=== PATIENT | female | born 1970 | race Caucasian/White ===

== ENCOUNTER 2019-11-19 08:26 | Outpatient (CLI) | payer BC, SELFPAY ==
--- NOTE | 2019-11-19 | US_ITS ---
WS: [id number] Complete ABDOMINAL ULTRASOUND HISTORY: RUQ PAIN COMPARISON: None available. Liver: 14.8 cm in length. Liver is normal size and echogenicity with no mass or intrahepatic dilatati on. Gallbladder: Normally distended gallbladder with numerous stones. No pericholecystic fluid. Gallbladder wall thickness: 0.2 cm. Pancreas: Poorly visualized. CBD: 0.3 cm. Right kidney: 9.8 cm x 3.8 cm x 4.5 cm. No mass, cortical thickening or hydronephrosis. Left kidney: 11.3 cm x 5.0 cm x 4.7 cm. No mass, cortical thickening or hydronephrosis. Spleen: Normal size and echogenicity. Abdominal aorta and IVC are within normal limits. No ascites. US/US abdomen complete* [id number] IMPRESSION: 1. Cholelithiasis without acute cholecystitis. 2. Pancreas is poorly visualized.
== END 2019-11-19 08:27 | disposition home or self-care (01) ==
LOC: RADOUTREAD 11:25
PROVIDERS: Visit Provider Nurse Practitioner Family
DX: Z01.89 Encounter for other specified special examinations (principal)

== ENCOUNTER 2019-12-01 10:14 | Day surgery (SDC) | payer BC, SELFPAY ==
[2019-11-30 13:18] VITALS: BMI 29.9
[2019-12-01 11:47] VITALS: BP 180/97; PULSE 86; RESP 18; TEMP 36.4; O2SAT 98
--- NOTE | 2019-12-01 12:05 | ANES.PREANE2 ---
Pre-Anesthetic Assessment Pre-Anesthetic Assessment: Height/Weight: Height 1.65 m Weight 81.647 kg Temp Pulse Resp BP Pulse Ox 97.5 F L 86 18 180/97 98 12/01/19 11:47 12/01/19 11:47 12/01/19 11:47 12/01/19 11:47 12/01/19 11:47 Preop Diagnosis: Gallstones Proposed Procedure: Operation Date: 12/01/19 12:40 Proposed Procedures p Laparoscopic Cholecystectomy 72972 K80.20(Not Applicable) - Saul Mello MD Last intake: Intake Last Liquid Date 11/30/19 Last Liquid Time 18:30 Last Solid Date 11/30/19 Last Solid Time 18:30 Exam: Pre-Anes Outpt Exam: alert, oriented x 3, clear to auscultation bilaterally and regular rate & rhythm Airway: Submandibular: WNL Cervical ROM: WNL MP: 2 GI: Comments: cholelithiasis Anesthetic Plan: ASA status: 2 Anesthesia: General PFSH Anesthesia PFSH: Social History Smoking and tobacco status: never smoked Alcohol intake: never Data Anesthesia Cardiac Studies: No Data to Display
[2019-12-01] MEDS: sodium chloride 0.9% 1,000 ML 30 ML IV (12:12)
--- NOTE | 2019-12-01 14:00 | W.PM.OPSUD ---
Surgery/Procedure H&P Update DATE OF PROCEDURE: December 01, 2019 DATE H&P PERFORMED: 11/29/19 H&P UPDATE INFORMATION: I have reviewed H&P completed within last 30 days, I have examined patient prior to procedure and No changes to prior documentation PREOP DIAGNOSIS: Gallstones PLANNED PROCEDURE: Operation Date: 12/01/19 12:40 Proposed Procedures p Laparoscopic Cholecystectomy 08379 K80.20(Not Applicable) - Saul Mello MD
--- NOTE | 2019-12-01 14:42 | PM.OP ---
Operative Report Date of procedure: December 15, 2019 Pre-op Diagnosis: Cholelithiasis Post-op diagnosis: same Procedure Done: Laparoscopic cholecystectomy Specimens removed/disposition: Gallbladder Surgeon: Saul Mello Anesthesia: General Estimated blood loss (mL): 10 Condition: stable Disposition: PACU Procedure: The patient was taken to the operating room and was intubated under general anesthesia. After the antibiotic had been administered, the abdomen was prepped and draped in a sterile manner. Using a #15 blade, a 1 centimeter infraumbilical curvilinear incision was made and using an open Anabel technique the peritoneal cavity was entered. A 10 millimeter port was placed and 15 millimeters of pneumoperitoneum was created. A 10 millimeter, 30 degrees scope was then introduced. Three 5 millimeter ports were placed in the epigastric, midclavicular and the anterior axillary line two fingerbreadths below the costal margin on the right side under the direct visualization. Ratcheted forceps were introduced into the lateral most port and was used to retract the fundus of the gallbladder cephalad and using forceps the infundibulum of the gallbladder was retracted laterally. Using L-hook cautery the peritoneum overlying the Calot's triangle was opened medially and laterally until the cystic duct and the cystic artery were skeletonized. Dissection was carried along the body of the gallbladder and after ensuring critical view of safety, 4 clips applied on the cystic duct and 3 clips applied on the cystic artery and cut leaving, 3 clips on the remaining portion of the duct and 2 clips on the remaining portion of the artery. The rest of the gallbladder was dissected off the liver using L-hook cautery. There was no bleeding or bile leaking noted from the gallbladder fossa and the clips appeared to be in place. An EndoCatch bag was introduced to remove the gallbladder. All the ports were removed under direct visualization and there was no bleeding noted from the port sites. The fascia of the umbilicus was closed using [id number] 0 Vicryl sutures and the subcutaneous tissue was approximated using 3-0 Vicryl sutures. The skin at all four ports were closed using 4-0 Monocryl and Dermabond. A total of 10 millimeters of 0.5% Marcaine was infiltrated around the port sites. The patient was stable throughout the procedure.
[2019-12-01 17:14] VITALS: BP 142/79; PULSE 96; RESP 16; TEMP 36.6; O2SAT 98
[2019-12-01 17:20] VITALS: BP 149/98; PULSE 81; RESP 20; O2SAT 97
[2019-12-01 17:25] VITALS: BP 139/67; PULSE 76; RESP 14; TEMP 36.5; O2SAT 95
[2019-12-01 17:37] VITALS: BP 121/72; PULSE 72; RESP 16; TEMP 36.5; O2SAT 100
[2019-12-01] MEDS: HYDROcodone-acetaminophen 5-325 mg Tablet 1 TAB PO (17:50)
[2019-12-01 17:56] VITALS: BP 142/77; PULSE 85; RESP 18; TEMP 36.5; O2SAT 96
== END 2019-12-01 18:24 | disposition home or self-care (01) ==
PROVIDERS: PCP Family Medicine; Visit Provider Surgery
PROC: 0FT44ZZ Resection of Gallbladder, Percutaneous Endoscopic Approach (ICD-10-PCS; CPT 47562; principal; 2019-12-01 12:40)
DX: K80.10 Calculus of gallbladder with chronic cholecystitis without obstruction (principal)
CPT/HCPCS: 47562; 12345; 88304; J0131; J0690; J1100; J2001; J2405; J2704; J2710; J3010; J3490; J7030

== ENCOUNTER 2021-12-31 13:55 | Outpatient (CLI) | payer BC, SELFPAY ==
--- NOTE | 2021-12-31 14:13 | XR_ITS ---
WS: [email or web address] Exam: XR shoulder LT min 2V* [id number] Date/Time of Exam: 12/31/2021 2:19 PM Reason For Exam: PAIN IN JOINT IN SHOULDER Comparison 06/17/2018. The projections of the shoulder reveal no fractures, anomalies, soft tissue swelling, or calcificatio ns. There is normal bony alignment. No irregularity of the bony architecture is noted. XR/XR shoulder LT min 2V* [id number] IMPRESSION: Negative left shoulder.
== END 2021-12-31 13:56 | disposition home or self-care (01) ==
PROVIDERS: PCP Family Medicine; Visit Provider Family Medicine
DX: M25.512 Pain in left shoulder (principal)
CPT/HCPCS: 73030

== ENCOUNTER 2022-12-27 09:30 | Outpatient (CLI) | payer BC, SELFPAY ==
--- NOTE | 2022-12-27 09:44 | MM_ITS ---
WS: [email or web address] SCREENING DIGITAL BREAST TOMOSYNTHESIS MAMMOGRAM WITH CAD HISTORY: SCREENING COMPARISON: 08/01/2017, 10/01/2018, 10/22/2018 Bilateral CC and MLO with tomosynthesis and synthetic mammography submitted. Computer aided detection analyzed. Breast composition: There are scattered areas of fibroglandular density. Well-circumscribed mass richmond uring 8 x 9 mm in the anterior RIGHT breast just posterior and lateral to the nipple. There is an add itional vague asymmetry in the central medial LEFT breast which is probably above the nipple line. Ad ditional imaging is also recommended. Benign calcifications otherwise. MM/[place] [id number] IMPRESSION: BI-RADS: 0-Incomplete: Need additional imaging evaluation FOLLOW UP: Need Additional Imaging RIGHT breast: Spot compression views (CC and MLO). True ML. Ultrasound to follo w if abnormality persists. LEFT breast: Spot compression views (CC and MLO). True ML. Ultrasound to follow if abnormality persists.
== END 2022-12-27 09:31 | disposition home or self-care (01) ==
LOC: RAD 09:37
PROVIDERS: PCP Family Medicine; Visit Provider Nurse Practitioner Family
DX: Z12.31 Encounter for screening mammogram for malignant neoplasm of breast (principal)
CPT/HCPCS: 77063; 77067

== ENCOUNTER 2023-01-14 10:39 | Outpatient (CLI) | payer BC, SELFPAY ==
--- NOTE | 2023-01-14 11:05 | MM_ITS ---
WS: [id number] DIAGNOSTIC BILATERAL DIGITAL BREAST TOMOSYNTHESIS MAMMOGRAPHY WITH CAD Bilateral breast ultrasound, limited HISTORY: ABNORMAL MAMMO COMPARISON: 12/27/2022, 11/19/2018 TECHNIQUE: Bilateral craniocaudad, mediolateral oblique, and mediolateral views are submitted with to mosismael and SM. Spot compression views bilateral CC and MLO. Computer aided detection utilized. Breast composition: There are scattered areas of fibroglandular density. Mass persists in the anterio r subareolar region RIGHT breast measuring 9.5 mm. Ultrasound to be performed. Additional mass persis ts in the medial LEFT breast near 9-10 o'clock at a middle depth measuring 6.6 mm. Ultrasound to foll ow. Bilateral breast ultrasound, limited. RIGHT: Nearly isoechoic nodule in the RIGHT retroareolar region with lobulated margins measures 8 x 8 x 6 mm. Corresponds to the mammographic abnormality. No increased vascularity. LEFT: The very subtle mass in the LEFT breast is not definitely identified by ultrasound. MM/[place] [id number] IMPRESSION: BI-RADS: 4-Suspicious Finding-Biopsy Should Be Considered FOLLOW UP: Biopsy Recommended 1. Ultrasound-guided biopsy recommended of the mass in the RIGHT retroareolar region. This mass is increased in size since 2019. 2. Mass seen in the LEFT breast by mammography is not identified by ultrasound . This is a very subtle finding. 6 month mammographic follow-up LEFT breast and possible ultrasound recommended.
--- NOTE | 2023-01-14 11:49 | US_ITS ---
WS: [email or web address] DIAGNOSTIC BILATERAL DIGITAL BREAST TOMOSYNTHESIS MAMMOGRAPHY WITH CAD Bilateral breast ultrasound, limited HISTORY: ABNORMAL MAMMO COMPARISON: 12/27/2022, 11/19/2018 TECHNIQUE: Bilateral craniocaudad, mediolateral oblique, and mediolateral views are submitted with to mosismael and SM. Spot compression views bilateral CC and MLO. Computer aided detection utilized. Breast composition: There are scattered areas of fibroglandular density. Mass persists in the anterio r subareolar region RIGHT breast measuring 9.5 mm. Ultrasound to be performed. Additional mass persis ts in the medial LEFT breast near 9-10 o'clock at a middle depth measuring 6.6 mm. Ultrasound to foll ow. Bilateral breast ultrasound, limited. RIGHT: Nearly isoechoic nodule in the RIGHT retroareolar region with lobulated margins measures 8 x 8 x 6 mm. Corresponds to the mammographic abnormality. No increased vascularity. LEFT: The very subtle mass in the LEFT breast is not definitely identified by ultrasound. US/US breast BI limited* [id number] IMPRESSION: BI-RADS: 4-Suspicious Finding-Biopsy Should Be Considered FOLLOW UP: Biopsy Recommended 1. Ultrasound-guided biopsy recommended of the mass in the RIGHT retroareolar region. This mass is increased in size since 2019. 2. Mass seen in the LEFT breast by mammography is not identified by ultrasound . This is a very subtle finding. 6 month mammographic follow-up LEFT breast and possible ultrasound recommended.
== END 2023-01-14 10:40 | disposition home or self-care (01) ==
LOC: RAD 10:41
PROVIDERS: PCP Family Medicine; Visit Provider Nurse Practitioner Family
DX: N64.89 Other specified disorders of breast (principal); N63.14 Unspecified lump in the right breast, lower inner quadrant
CPT/HCPCS: 76642; 77062; G0279

== ENCOUNTER 2023-01-23 12:04 | Outpatient (CLI) | payer BC, SELFPAY ==
--- NOTE | 2023-01-23 12:16 | US_ITS ---
WS: [email or web address] ULTRASOUND-GUIDED RIGHT BREAST BIOPSY HISTORY: MASS OF R BREAST COMPARISON: 01/14/2023, 11/03/2018 Procedure, risks and complications are explained to the patient. Medications are reviewed. Consent is obtained. The mass in the RIGHT breast is localized with ultrasound. Mass localizes to the subareolar region RI GHT breast. Skin is cleansed with ChloraPrep and anesthetized with 1% buffered lidocaine. Small derma tome is made. Under sterile conditions mass is biopsied with a 14-gauge Achieve needle. Multiple core biopsies are performed. Material placed in formalin and sent to pathology for review. No complicatio ns encountered. Breast tissue marker (Bard ultrasound enhanced ribbon): Single. Patient left the radiology suite with no complications. Patient is instructed to return to [facility] or [facility] with any concerns. US/[place] [id number] IMPRESSION: 1. Uncomplicated core needle biopsy RIGHT breast mass, subareolar. PATHOLOGY: Fibroadenoma with apocrine metaplasia. No malignancy. RECOMMENDATION: Diagnostic RIGHT mammogram and possible ultrasound follow-up 6 months.
== END 2023-01-23 12:05 | disposition home or self-care (01) ==
PROVIDERS: PCP Family Medicine; Visit Provider Nurse Practitioner Family
DX: N63.10 Unspecified lump in the right breast, unspecified quadrant (principal)
CPT/HCPCS: 19083; 88305

== ENCOUNTER 2023-04-29 08:22 | Outpatient (CLI) | payer BC, SELFPAY | END 2023-04-29 08:23 | disposition home or self-care (01) | LOC: RAD 14:16 | PROVIDERS: PCP Nurse Practitioner Family; Visit Provider Podiatrist Foot & Ankle Surgery | DX: M19.072 Primary osteoarthritis, left ankle and foot (principal); M79.672 Pain in left foot; Q66.89 Other specified congenital deformities of feet | CPT/HCPCS: 73630 ==

== ENCOUNTER 2023-05-14 13:19 | Outpatient (CLI) | payer BC, SELFPAY ==
--- NOTE | 2023-05-14 13:45 | MR_ITS ---
WS: [email or web address] EXAMINATION: MR ankle LT wo con* [id number] ORDER DATE: 05/14/2023 1:34 PM COMPARISON: None. HISTORY: Achilles tendon rupture CONTRAST: None. TECHNIQUE: Axial proton density fat sat, axial T1, sagittal proton density, sagittal STIR, coronal T2 fat sat, and coronal T1 sequences performed. After contrast, axial T1 fat sat, coronal T1 fat sat, and sagittal T1 fat sat were performed. FINDINGS: Diffuse fusiform thickening of the distal Achilles tendon with surrounding fluid and edema. Slight in creased signal in the Achilles tendon. Findings compatible with tendinopathy. Achilles tendon measure s 13 mm in maximum AP dimension. Additional small intrasubstance tear involving the ventral surface i n the mid tendon. Surrounding peritendinitis Plantar calcaneal spurring. Pes planus. Flattening of the talocalcaneal angle. Osteopenia. Normal pl otto aponeurosis. Small lobulated ganglion cysts along the dorsal talocalcaneal recess. Normal luis fernando avicular articulation. 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 Normal awilda r dome. Small ankle effusion. ATF appears intact. Soft tissue edema about the ankle. Chronic appearing split tear involving the peroneal brevis. Small amount of tenosynovitis involving t he flexor compartment tendons. Normal extensor compartment tendons. IMPRESSION: * Diffuse fusiform thickening of the Achilles tendon compatible with tendinopathy measuring up to 13 mm in maximum AP dimension. Surrounding fluid and edema compatible with peritendinitis. * Small partial Achilles tear in the mid tendon along the ventral surface with a small amount of adj acent fluid and edema. * Pes planus with plantar calcaneal spurring. Normal plantar fascia. * Chronic appearing ununited fracture involving the tip of the medial malleolus. * ATF appears intact. * Moderate degenerative changes involving the midfoot and hindfoot. * Chronic appearing split tear involving the peroneal brevis.
== END 2023-05-14 13:20 | disposition home or self-care (01) ==
PROVIDERS: PCP Family Medicine; Visit Provider Podiatrist Foot & Ankle Surgery
DX: S86.012A Strain of left Achilles tendon, initial encounter (principal); S86.312A Strain of muscle(s) and tendon(s) of peroneal muscle group at lower leg level, left leg, initial encounter; M76.822 Posterior tibial tendinitis, left leg; M21.42 Flat foot [pes planus] (acquired), left foot; S82.52XK Displaced fracture of medial malleolus of left tibia, subsequent encounter for closed fracture with nonunion; X58.XXXD Exposure to other specified factors, subsequent encounter; M85.872 Other specified disorders of bone density and structure, left ankle and foot
CPT/HCPCS: 73721

== ENCOUNTER 2023-05-27 11:19 | Outpatient (CLI) | payer BC, SELFPAY | END 2023-05-27 11:20 | disposition home or self-care (01) | LOC: SPT 11:20 | PROVIDERS: PCP Family Medicine; Visit Provider Podiatrist Foot & Ankle Surgery | DX: Z46.89 Encounter for fitting and adjustment of other specified devices (principal); X58.XXXD Exposure to other specified factors, subsequent encounter; M25.572 Pain in left ankle and joints of left foot | CPT/HCPCS: 97760; L4361 ==

== ENCOUNTER 2023-06-25 07:40 | Outpatient (RCR) | payer BC, SELFPAY | END 2023-07-15 23:59 | disposition home or self-care (01) | LOC: SPT 07:40 | PROVIDERS: Visit Provider Podiatrist Foot & Ankle Surgery | DX: M76.62 Achilles tendinitis, left leg (principal); M67.02 Short Achilles tendon (acquired), left ankle; M25.572 Pain in left ankle and joints of left foot | CPT/HCPCS: 97161 ==

== ENCOUNTER 2023-07-28 12:58 | Outpatient (CLI) | payer BC, SELFPAY ==
--- NOTE | 2023-07-28 13:06 | MM_ITS ---
WS: [id number] DIAGNOSTIC BILATERAL DIGITAL BREAST TOMOSYNTHESIS MAMMOGRAPHY WITH CAD HISTORY: 6MFU POST BX, RIGHT breast COMPARISON: 01/14/2023, 08/01/2017, 12/27/2022 TECHNIQUE: Bilateral craniocaudad, mediolateral oblique, and mediolateral views are submitted with to mosynthesis and SM. Bilateral CC spot compression views. Computer aided detection utilized. Breast composition: There are scattered areas of fibroglandular density. Well-circumscribed mass in t he anterior RIGHT breast which was biopsied recently contains a clip. The biopsy clip is centrally po sitioned. Mass is similar in size. Noted to be benign on a recent biopsy. The asymmetry in the LEFT b reast is not apparent today. There are no suspicious findings within either breast. IMPRESSION: MM/[place] [id number] BI-RADS: 2-Benign FOLLOW UP: 1 Year Follow-up Recommend return to annual screening mammography.
== END 2023-07-28 12:59 | disposition home or self-care (01) ==
LOC: RAD 12:59
PROVIDERS: PCP Nurse Practitioner Family; Visit Provider Nurse Practitioner Family
DX: N63.10 Unspecified lump in the right breast, unspecified quadrant (principal)
CPT/HCPCS: 77062; G0279

== ENCOUNTER → 2023-10-07 17:10 | Outpatient (BNVA) | payer BC, SELFPAY | PROVIDERS: PCP Nurse Practitioner Family; Visit Provider Emergency Medicine | DX: J02.9 Acute pharyngitis, unspecified (principal) | CPT/HCPCS: 87071; 87880 ==

== ENCOUNTER → 2024-08-10 07:47 | Outpatient (BNVA) | payer BC, SELFPAY | PROVIDERS: PCP Nurse Practitioner Family | DX: K13.29 Other disturbances of oral epithelium, including tongue (principal) | CPT/HCPCS: 87880 ==

== ENCOUNTER 2024-11-25 10:13 | Outpatient (CLI) | payer BC, SELFPAY ==
--- NOTE | 2024-11-25 10:14 | MM_ITS ---
WS: [email or web address] Bilateral screening 3D tomosynthesis digital mammogram, 11/25/2024 10:18 AM Clinical Data: SCREENING Comparison: 07/28/2023, 01/14/2023, 12/27/2022, 11/19/2018, 10/01/2018, 08/01/2017, 12/31/2016, 07/02/2016, 06/12/2016, 05/07/2010. Findings: The right breast nodule in the anterior aspect of the right breast shows irregularity of the margins on the MLO view. There is a slight increase in size of this nodule compared to the prior exam. There is a biopsy clip in the central portion of the nodule. The left breast shows no change from before. There are scattered dystrophic calcifications in both breasts. MM/MM scr BI tomosynthesis [id number] Impression: 1. Slight increase in size of right breast nodule with spiculated border and re commend right breast ultrasound and ML view of the right breast. 2. Negative left breast BIRADS: 0 - Incomplete: Need additional imaging evaluation. FOLLOW UP: See Report DENSITY: There are scattered areas of fibroglandular density. The CAD body design checker was used
== END 2024-11-25 10:14 | disposition home or self-care (01) ==
PROVIDERS: PCP Family Medicine; Visit Provider Family Medicine
DX: Z12.31 Encounter for screening mammogram for malignant neoplasm of breast (principal); R92.323 Mammographic fibroglandular density, bilateral breasts; N63.10 Unspecified lump in the right breast, unspecified quadrant; R92.1 Mammographic calcification found on diagnostic imaging of breast
CPT/HCPCS: 77063; 77067

== ENCOUNTER → 2024-12-16 07:08 | Outpatient (BNVA) | payer BC, SELFPAY | PROVIDERS: PCP Family Medicine; Visit Provider Family Medicine | DX: Z51.81 Encounter for therapeutic drug level monitoring (principal); Z00.00 Encounter for general adult medical examination without abnormal findings; Z13.6 Encounter for screening for cardiovascular disorders; E55.9 Vitamin D deficiency, unspecified; R53.81 Other malaise; R53.83 Other fatigue | CPT/HCPCS: 80053; 80061; 82306; 84443; 85025 ==

== ENCOUNTER 2024-12-21 08:54 | Outpatient (CLI) | payer BC, SELFPAY ==
--- NOTE | 2024-12-21 08:57 | US_ITS ---
WS: [email or web address] Exam: US breast RT limited* [id number] Date/Time of Exam: 12/21/2024 10:05 AM Reason For Exam: ABNORMAL MAMMOGRAM Compared to prior exam 01/23/2023. A 0.9 x 0.5 0.8 cm heterogeneous hypoechoic solid nodule noted in the RIGHT retroareolar area. The nodule contains a stereotactic biopsy marker. The nodule shows no change in size or appearance since the prior ultrasound. Recommendations: 6-month follow-up RIGHT mammogram and RIGHT breast ultrasound suggested for surveillance. US/US breast RT limited* [id number] IMPRESSION: 1. Stable appearing hypoechoic solid nodule in the retroareolar area of the RIG HT breast containing a stereotactic biopsy marker. BI-RADS Category 3.
--- NOTE | 2024-12-21 09:00 | MM_ITS ---
WS: [email or web address] VIEWS: MLO, CC, and ML views RIGHT breast. 3D digital tomosynthesis is also included in this exam. Comparison made with prior exam of 05/07/2010, 06/12/2016, 08/01/2017, 10/01/2018, 12/27/2022.. Findings: There are scattered areas of fibroglandular density. Again noted is a 9.2 mm nodule in the subareolar area of the RIGHT breast containing a stereotactic biopsy marker. No obvious architectural distortion. A single microcalcification is noted in the nodule. Very little change since 07/28/2023. Renal ultrasound recommended for further work-up. MM/MM diag RT tomosynthesis [id number] Impression: BI-RADS: 0 - Incomplete: Need additional imaging evaluation. FOLLOW-UP: Need Additional Imaging This mammogram was also analyzed by the Computer Aided Detection System R2 Imag e [employer] Claims Supervisor.
== END 2024-12-21 08:55 | disposition home or self-care (01) ==
PROVIDERS: PCP Family Medicine; Visit Provider Family Medicine
DX: R92.8 Other abnormal and inconclusive findings on diagnostic imaging of breast (principal); R92.323 Mammographic fibroglandular density, bilateral breasts; N63.41 Unspecified lump in right breast, subareolar; R92.0 Mammographic microcalcification found on diagnostic imaging of breast
CPT/HCPCS: 76642; 77061; G0279

== ENCOUNTER 2025-06-07 14:00 | Outpatient (CLI) | payer BC, SELFPAY ==
--- NOTE | 2025-06-07 14:00 | MM_ITS ---
WS: [email or web address] DIAGNOSTIC RIGHT DIGITAL BREAST TOMOSYNTHESIS MAMMOGRAPHY WITH CAD RIGHT BREAST ULTRASOUND HISTORY: Right breast nodule - Follow for stability COMPARISON: None available. DIAGNOSTIC RIGHT TOMOSYNTHESIS MAMMOGRAM with SM Right CC, MLO and ML projections are submitted. Right cc spot film. Breast parenchyma: There are scattered areas of fibroglandular density. Reidentified is a solid nodule with biopsy clip in the retroareolar region. Mass measures 7 x 6 x 8 mm. No increase in size. Margins are well-circumscribed. No additional abnormality. RIGHT BREAST ULTRASOUND 2-D and Doppler imaging is submitted. Ultrasound directed to the retroareolar breast. Reidentified is a hypoechoic mass which is nearly isoechoic to the adjacent soft tissue. Mass measures 0.8 x 0.5 x 0.7 cm and contains a biopsy clip. There is been no increase in size of this mass. MM/MM diag RT tomosynthesis [id number] IMPRESSION: BI-RADS: 2 - Benign. FOLLOW UP: 1 Year Follow-up Return to annual screening mammography.
--- NOTE | 2025-06-07 14:10 | US_ITS ---
WS: [email or web address] DIAGNOSTIC RIGHT DIGITAL BREAST TOMOSYNTHESIS MAMMOGRAPHY WITH CAD RIGHT BREAST ULTRASOUND HISTORY: Right breast nodule - Follow for stability COMPARISON: None available. DIAGNOSTIC RIGHT TOMOSYNTHESIS MAMMOGRAM with SM Right CC, MLO and ML projections are submitted. Right cc spot film. Breast parenchyma: There are scattered areas of fibroglandular density. Reidentified is a solid nodule with biopsy clip in the retroareolar region. Mass measures 7 x 6 x 8 mm. No increase in size. Margins are well-circumscribed. No additional abnormality. RIGHT BREAST ULTRASOUND 2-D and Doppler imaging is submitted. Ultrasound directed to the retroareolar breast. Reidentified is a hypoechoic mass which is nearly isoechoic to the adjacent soft tissue. Mass measures 0.8 x 0.5 x 0.7 cm and contains a biopsy clip. There is been no increase in size of this mass. US/US breast RT limited* [id number] IMPRESSION: BI-RADS: 2 - Benign. FOLLOW UP: 1 Year Follow-up Return to annual screening mammography.
== END 2025-06-07 14:01 | disposition home or self-care (01) ==
LOC: RAD 14:00
PROVIDERS: PCP Family Medicine; Visit Provider Family Medicine
DX: N63.10 Unspecified lump in the right breast, unspecified quadrant (principal); R92.321 Mammographic fibroglandular density, right breast
CPT/HCPCS: 76642; 77061; G0279